=== PATIENT | male | born 1960 ===

== ENCOUNTER 2023-12-01 19:39 | Inpatient (IN) | payer MEDICARE, OTHER ==
[~2023-12-01] VITALS: Ht 172.7 cm; Wt 72.6 kg
[2023-12-01] MEDS ORDERED: THIA100T74 PO (20:26)
[2023-12-01 20:29] LABS: BASOPHILS % (AUTO) 0.6 % (0.0-2.0); EOSINOPHILS # (AUTO) 0.5 K/uL (0.0-0.7); EOSINOPHILS % (AUTO) 8.7 % (0.0-7.0); HEMOGLOBIN 9.6 g/dL (12.5-16.3); LYMPHOCYTES # (AUTO) 2.2 K/uL (0.8-4.8); LYMPHOCYTES % (AUTO) 34.9 % (20.5-51.5); MEAN CORPUSCULAR HEMOGLOBIN 24.4 uug (23.8-33.4); MEAN CORPUSCULAR HGB CONC 31 g/dL (32.5-36.3); MEAN CORPUSCULAR VOLUME 78.8 fL (73.0-96.2); MONOCYTES # (AUTO) 0.7 K/uL (0.1-1.30); MONOCYTES % (AUTO) 11.2 % (0.0-11.0); NEUTROPHILS # (AUTO) 2.8 K/uL (1.8-8.9); NEUTROPHILS % (AUTO) 44.6 % (38.5-71.5); PLATELET COUNT (AUTO) 198 K/uL (152-348); RED BLOOD CELL COUNT(AUTO) 3.94 MIL/uL (4.06-5.63); RED CELL DISTRIBUTION WIDTH 25.3 % (12.1-16.2); WHITE BLOOD COUNT (AUTO) 6.2 K/uL (3.6-10.2)
[2023-12-01 20:31] LABS: DIFFERENTIAL COMMENT 1
[2023-12-01 20:33] LABS: CALCIUM 8.4 mg/dL (8.5-10.1); CARBON DIOXIDE 26 mmol/L (21-32); CHLORIDE 108 mmol/L (98-107); GLUCOSE 115 mg/dL (74-106); POTASSIUM 4.4 mmol/L (3.5-5.1); SODIUM SERUM 143 mmol/L (136-145); UREA NITROGEN, BLOOD 22 mg/dL (7-18)
[2023-12-01] MEDS ORDERED: DIVA500T2 PO (20:33)
[2023-12-01] MEDS ORDERED: FERR-68 PO (20:33)
[2023-12-01] MEDS ORDERED: PANT40TA49 PO (20:33)
[2023-12-01] MEDS ORDERED: CHOL100062 PO (20:33)
[2023-12-01] MEDS ORDERED: QUET25TA PO (20:33)
[2023-12-01] MEDS ORDERED: RIVA20TA PO (20:33)
[2023-12-01] MEDS ORDERED: HALO5TAB PO (20:33)
[2023-12-01] MEDS ORDERED: ATOR20TA PO (20:33)
[2023-12-01] MEDS ORDERED: TAMS-3 PO (20:33)
[2023-12-01] MEDS ORDERED: SENN8.6T19 PO (20:33)
[2023-12-01 20:39] LABS: ACETAMINOPHEN 3.6 ug/mL (10-30); ALANINE AMINOTRANSFERASE 19 U/L (16-63); ALKALINE PHOSPHATASE 80 U/L (50-136); ASPARTATE AMINOTRANSFERASE 6 U/L (15-37); BILIRUBIN,DIRECT 0.1 mg/dL (0.0-0.2); BILIRUBIN,TOTAL 0.3 mg/dL (0.2-1.0); TOTAL PROTEIN, SERUM 6.8 g/dL (6.4-8.2)
[2023-12-01 20:43] LABS: ETHANOL < 3 MG/DL (0-10)
[2023-12-02 00:25] LABS: *BILIRUBIN,URIN NEGATIVE (NEGATIVE); *BLOOD, URINE NEGATIVE (NEGATIVE); *CLARITY,URINE CLEAR (CLEAR); *COLOR,URINE YELLOW (YELLOW); *KETONES,URINE TRACE (NEGATIVE); *PROTEIN,URINE NEGATIVE (NEGATIVE); LEUKOCYTE ESTERASE ,URINE NEGATIVE (NEGATIVE); NITRITE, URINE NEGATIVE (NEGATIVE); PH,URINE 6.5 (5.0-8.0); UGLUCOSE NEGATIVE (NEGATIVE)
[2023-12-02 00:39] LABS: *AMPHETAMINE, URINE NEGATIVE (NEGATIVE); *BARBITURATE, URINE NEGATIVE (NEGATIVE); *BENZODIAZEPINE, URINE NEGATIVE (NEGATIVE); *CANNABINOID, URINE NEGATIVE (NEGATIVE); *COCCAINE, URINE NEGATIVE (NEGATIVE); *OPIATE, URINE NEGATIVE (NEGATIVE); *PHENCYCLIDINE SCREEN,URINE NEGATIVE (NEGATIVE)
[2023-12-02 00:40] LABS: FENTANYL, URINE NEGATIVE (NEGATIVE)
[2023-12-02] MEDS ORDERED: MAGNESIUM HYDROXIDE 30 ML LIQUID UDC PO PRN (02:30)
[2023-12-02] MEDS ORDERED: ZOLPIDEM 5 MG TABLET PO PRN (02:30)
[2023-12-02] MEDS ORDERED: ACETAMINOPHEN 325 MG TABLET PO PRN (02:30)
[2023-12-02] MEDS ORDERED: MAG HYDROX/AL HYDROX/SIMETH 30 ML LIQUID UDC PO PRN (02:30)
[2023-12-02] MEDS: LORAZEPAM 1 MG TABLET PO PRN (03:51)
[2023-12-02] MEDS ORDERED: FOLI1TAB27 PO (06:18)
[2023-12-02] MEDS ORDERED: FINA5TAB3 PO (06:18)
[2023-12-02] MEDS ORDERED: POLY17PO4 PO (06:18)
[2023-12-02] MEDS ORDERED: ACET325C7 PO (06:21)
[2023-12-02] MEDS ORDERED: ONDA4TAB5 PO (06:21)
[2023-12-02 07:51] VITALS: BP 128/77; TEMP 98.5; O2SAT 92
[2023-12-02] MEDS: LITHIUM CARBONATE 300 MG CAPSULE PO SCH (10:41)
[2023-12-02] MEDS: BENZTROPINE MESYLATE 1 MG TABLET PO SCH (10:41)
[2023-12-02] MEDS: DIVALPROEX 500 MG TABLET.DR PO SCH ×2 (10:41→15:13)
[2023-12-02] MEDS: HALOPERIDOL 5 MG TABLET PO SCH (10:41)
[2023-12-02] MEDS: SENNOSIDES 1 TABLET PO SCH (13:23)
[2023-12-02] MEDS: FINASTERIDE 5 MG TABLET PO SCH (13:23)
[2023-12-02] MEDS: THIAMINE HCL 100 MG TABLET PO SCH (13:23)
[2023-12-02] MEDS: PANTOPRAZOLE SODIUM 40 MG TABLET.DR PO SCH (13:23)
[2023-12-02] MEDS: CHOLECALCIFEROL 1,000 UNIT TABLET PO SCH (13:23)
[2023-12-02] MEDS: FOLIC ACID 1 MG TABLET PO SCH (13:23)
[2023-12-02 16:08] VITALS: BP 121/79; TEMP 97.8; O2SAT 100
[2023-12-02] MEDS: MIRALAX 17 GM POWD.PACK PO SCH (17:33)
[2023-12-02] MEDS: FERROUS SULFATE 325 MG TABEC PO SCH (17:33)
[2023-12-02] MEDS: RIVAROXABAN 10 MG TABLET PO SCH (18:44)
[2023-12-02 20:00] VITALS: BP 119/77; TEMP 98; O2SAT 100
[2023-12-02] MEDS: TAMSULOSIN HCL 0.4 MG CAP.SR.24H PO SCH (21:06)
[2023-12-02] MEDS: ATORVASTATIN 20 MG TABLET PO SCH (21:06)
[2023-12-02] MEDS: levETIRAcetam 500 MG/5 ML LIQUID UDC NG SCH (21:30)
[2023-12-03 08:22] VITALS: BP 126/79; TEMP 97.7; O2SAT 98
[2023-12-03] MEDS: levETIRAcetam 500 MG TABLET PO SCH (08:42)
[2023-12-03 16:04] VITALS: BP 98/53; TEMP 97.8; O2SAT 98
[2023-12-03 20:00] VITALS: BP 130/74; TEMP 97.9; O2SAT 95
[2023-12-04 08:36] VITALS: BP 107/56; TEMP 98; O2SAT 98
[2023-12-04 16:23] VITALS: BP 96/56; TEMP 98.1; O2SAT 97
[2023-12-04 19:54] VITALS: BP 101/55; TEMP 98.1; O2SAT 96
[2023-12-05 07:52] VITALS: BP 139/81; TEMP 98.1; O2SAT 98
[2023-12-05 16:01] VITALS: BP 119/71; TEMP 98; O2SAT 98
[2023-12-05 20:00] VITALS: BP 145/78; TEMP 97.7; O2SAT 96
[2023-12-06 07:30] VITALS: BP 105/56; TEMP 98.2; O2SAT 98
[2023-12-06] MEDS ORDERED: HYDROXYZINE PAMOATE 25 MG CAPSULE PO PRN (08:15)
[2023-12-06 15:10] VITALS: BP 109/65; TEMP 98; O2SAT 98
[2023-12-06 20:00] VITALS: BP 97/66; TEMP 98; O2SAT 100
[2023-12-07 07:55] VITALS: BP 109/68; TEMP 98.2; O2SAT 99
[2023-12-07 15:45] VITALS: BP 116/62; TEMP 98.2; O2SAT 99
[2023-12-07 20:00] VITALS: BP 117/60; TEMP 98.3; O2SAT 100
[2023-12-08 07:58] VITALS: BP 122/69; TEMP 98; O2SAT 100
[2023-12-08 15:04] VITALS: BP 101/62; TEMP 98.4; O2SAT 100
[2023-12-08 18:05] LABS: ALANINE AMINOTRANSFERASE 12 U/L (16-63); ALBUMIN 2.9 g/dL (3.4-5.0); ALKALINE PHOSPHATASE 58 U/L (50-136); ASPARTATE AMINOTRANSFERASE < 5 U/L (15-37); BILIRUBIN,TOTAL 0.3 mg/dL (0.2-1.0); CALCIUM 8.9 mg/dL (8.5-10.1); CARBON DIOXIDE 24 mmol/L (21-32); CHLORIDE 104 mmol/L (98-107); CREATININE 1.1 mg/dL (0.6-1.3); GLUCOSE 86 mg/dL (74-106); POTASSIUM 4.6 mmol/L (3.5-5.1); SODIUM SERUM 138 mmol/L (136-145); TOTAL PROTEIN, SERUM 6.9 g/dL (6.4-8.2); UREA NITROGEN, BLOOD 25 mg/dL (7-18); VALPROIC ACID 70 ug/mL (50-100)
[2023-12-08 19:45] VITALS: BP 111/60; TEMP 98.2; O2SAT 99
[2023-12-09 05:18] VITALS: BP 105/59; TEMP 98.1; O2SAT 99
[2023-12-09 07:45] VITALS: BP 114/71; TEMP 98.4; O2SAT 100
== END 2023-12-09 15:10 | DRG 885 ==
LOC: ER 19:52 → GPS 20:00
PROVIDERS: ADMIT Psychiatry & Neurology Psychiatry; ATTEND Nurse Practitioner Acute Care
DX: F25.0 Schizoaffective disorder, bipolar type (principal); N18.9 Chronic kidney disease, unspecified; F79 Unspecified intellectual disabilities; G81.91 Hemiplegia, unspecified affecting right dominant side; E44.1 Mild protein-calorie malnutrition; J98.11 Atelectasis; J44.9 Chronic obstructive pulmonary disease, unspecified; G40.909 Epilepsy, unspecified, not intractable, without status epilepticus; E88.09 Other disorders of plasma-protein metabolism, not elsewhere classified; E83.51 Hypocalcemia; N40.0 Benign prostatic hyperplasia without lower urinary tract symptoms; K21.9 Gastro-esophageal reflux disease without esophagitis; D64.9 Anemia, unspecified; I12.9 Hypertensive chronic kidney disease with stage 1 through stage 4 chronic kidney disease, or unspecified chronic kidney disease; E11.22 Type 2 diabetes mellitus with diabetic chronic kidney disease; E78.5 Hyperlipidemia, unspecified; M15.9 Polyosteoarthritis, unspecified; Z86.73 Personal history of transient ischemic attack (TIA), and cerebral infarction without residual deficits; Z79.01 Long term (current) use of anticoagulants; F39 Unspecified mood [affective] disorder
CPT/HCPCS: 36415; 70030-TC; 71045; 80164; 84443; 84481; 85025; 93005; G0480